=== PATIENT | female | born 1990 | race Caucasian/White ===

== ENCOUNTER 2017-08-27 17:18 | Emergency (ER) | payer OTHER, MEDICAID ==
[~2017-08-27] VITALS: Ht 162.6 cm; Wt 49.9 kg
[~2017-08-27 17:18] MED LIST: ABILIFY 2 MG2 MG; ACCUNEB SO1.25 MG/1; ACETAMINOPHEN-1 EAC1; ACETAMINOPHEN-1 EAC1 PO; AFRIN MENTHOL S15 ML NS; AMOXICILLIN 50500 M1 PO; AMOXICILLIN 50500 MG PO; AMOXICILLIN500 M1 PO; AMOXIL 875 MG875 M1 PO; APAP500 PO; AZITHROMYCIN 2250 MG PO; AZITHROMYCIN PO; BACTRIM DS TAB1 EACH PO; CENTRUM SILVER1 EAC4 PO; CEPHALEXIN 500500 M3 PO; CIPROFLOXACIN500 M3 OR; FERROUS SULFAT325 M1; HYDROCODONE-APA1 TA1 PO; IBUPROFEN 800800 M1; IBUPROFEN 800800 M1 PO; IRON; KEFLEX500 MG PO; LIDOCAINE VISC100 M1 SWISH&SPIT; LOESTRIN 24 FE1 EACH; MACROBID 100 M100 M1 PO; NAPROSYN500 MG PO; NOHOMEMEDICATIONS; NORCO 5-325 TA1 EACH PO; ONDANSETRON HCL4 M2 PO; PENICILLIN V P500 MG PO; PHENERGAN 25 MG25 MG PO; PREDNISONE 10 M10 MG PO; PREDNISONE 20 M20 M1 PO; PRENATAL; PROMETHAZINE-D120 ML PO; PROZAC40 MG; REMERON 30 MG T30 MG; ROBITUSSIN-COU237 ML PO; TERAZOL 320 GM VG; TESSALON PERLE100 MG PO; TOPAMAX 25 MG T25 M1; TRAMADOL 50 MG50 MG PO; TRINATE TABLET1 TAB PO; ULTRAM 50MG TAB50 MG PO; UNICOMPLEX M TA1 TA1; VENTOLIN HFA 1818 GM INH; VITAMIN B-625 MG; ZOFRAN 4 MG ORAL4 M1 DIS; ZOFRAN4 MG; ZOFRAN4 MG PO; ZOLOFT25 MG; ZPAK PO; [UNRECOGNIZED DRUG - OTHER]
[2017-08-27 17:30] VITALS: BP 95/54
[2017-08-27 18:21] LABS: INFLUENZA A ANTIGEN None Detected (None Detect); INFLUENZA B ANTIGEN None Detected (None Detect)
[2017-08-27] MEDS ORDERED: AMOXICILLIN 50500 MG PO (18:26)
== END 2017-08-27 18:54 | disposition home or self-care (01) ==
LOC: M.ERS 17:18
PROVIDERS: Nurse Practitioner Family
DX: J02.0 Streptococcal pharyngitis (principal); F32.9 Major depressive disorder, single episode, unspecified

== ENCOUNTER 2017-11-20 09:49 | Emergency (ER) | payer OTHER, MEDICAID ==
[~2017-11-20] VITALS: Ht 162.6 cm; Wt 49.9 kg
[2017-11-20] MEDS ORDERED: KEFLEX500 M1 PO (10:21)
[2017-11-20] MEDS ORDERED: BACTROBAN NASAL1 GM NASAL (10:21)
[2017-11-20] MEDS ORDERED: PROMETHAZINE V473 ML PO (10:22)
[2017-11-20] MEDS ORDERED: TESSALON PERLE100 MG PO (10:22)
[2017-11-20 10:34] VITALS: BP 105/57
== END 2017-11-20 10:35 | disposition home or self-care (01) ==
LOC: M.ERS 09:49
DX: J20.9 Acute bronchitis, unspecified (principal); L01.00 Impetigo, unspecified; Z88.5 Allergy status to narcotic agent

== ENCOUNTER 2018-07-14 14:40 | Emergency (ER) | payer OTHER, MEDICAID ==
[~2018-07-14] VITALS: Ht 162.6 cm; Wt 49.9 kg
[~2018-07-14 14:40] MED LIST changes: +BACTROBAN NASAL1 GM NASAL; +KEFLEX500 M1 PO; +PROMETHAZINE V473 ML PO
[2018-07-14] MEDS ORDERED: TESSALON PERLE100 MG PO (16:08)
[2018-07-14] MEDS ORDERED: PROAIR HFA8.5 GM INH (16:08)
[2018-07-14 16:22] VITALS: BP 115/64
== END 2018-07-14 16:22 | disposition home or self-care (01) ==
LOC: M.ERS 14:40
DX: J06.9 Acute upper respiratory infection, unspecified (principal); Z88.6 Allergy status to analgesic agent; Z98.890 Other specified postprocedural states

== ENCOUNTER 2020-01-13 11:17 | Emergency (ER) | payer OTHER ==
[~2020-01-13] VITALS: Ht 162.6 cm; Wt 54.4 kg
[~2020-01-13 11:17] MED LIST changes: +PROAIR HFA8.5 GM INH
[2020-01-13] MEDS ORDERED: LEVO-T25 MCG PO (11:28)
[2020-01-13] MEDS ORDERED: LEXAPRO20 MG PO (11:28)
[2020-01-13] MEDS ORDERED: KEFLEX500 M1 PO (12:14)
[2020-01-13 12:39] VITALS: BP 112/70
== END 2020-01-13 12:39 | disposition home or self-care (01) ==
LOC: M.ERS 11:17
DX: H00.015 Hordeolum externum left lower eyelid (principal); Z98.890 Other specified postprocedural states; Z88.6 Allergy status to analgesic agent

== ENCOUNTER 2021-07-12 15:57 | Emergency (ER) | payer OTHER ==
[~2021-07-12] VITALS: Ht 162.6 cm; Wt 52.2 kg
[~2021-07-12 15:57] MED LIST changes: +LEVO-T25 MCG PO; +LEXAPRO20 MG PO
[2021-07-12] MEDS ORDERED: LAMICTAL ODT50 MG PO (16:10)
[2021-07-12 17:28] LABS: MPV 6.9 fl. (7.2-11.1)
[2021-07-12 17:31] LABS: ABSOLUTE BASOPHILS 0.1 thou/uL (0.0-0.2); ABSOLUTE EOSINOPHILS 0.1 thou/uL (0.0-0.7); ABSOLUTE LYMPHOCYTES 2.3 thou/uL (0.8-5.3); ABSOLUTE MONOCYTES 0.7 thou/uL (0.0-1.2); ABSOLUTE NEUTROPHILS 3.8 thou/uL (1.6-8.1); EOSINOPHILS 0.9 %; HEMATOCRIT 35.3 % (37.0-47.0); HEMOGLOBIN 11.7 gm/dL (12.0-15.0); LYMPHOCYTES 33.5 %; MCH 29.4 pg (26.0-34.0); MCHC 33.2 g/dL (28.0-37.0); MCV 88.6 fL (80.0-100.0); MONOCYTES 10.6 %; NUCLEATED RBCS 0 /100WBC; PLATELET COUNT* 374 thou/uL (150-400); RBC 3.98 mil/uL (4.20-5.00); RDW-CV 13.7 % (10.5-14.5)
[2021-07-12 17:36] LABS: CREATININE 0.6 mg/dL (0.6-1.3)
[2021-07-12] MEDS ORDERED: IBUPROFEN 800800 M1 PO (18:47)
[2021-07-12 19:06] VITALS: BP 115/67
== END 2021-07-12 19:07 | disposition home or self-care (01) ==
LOC: M.ERS 15:57
PROVIDERS: Emergency Medicine
DX: S76.912A Strain of unspecified muscles, fascia and tendons at thigh level, left thigh, initial encounter (principal); S76.911A Strain of unspecified muscles, fascia and tendons at thigh level, right thigh, initial encounter; Z79.899 Other long term (current) drug therapy; Z88.5 Allergy status to narcotic agent; X58.XXXA Exposure to other specified factors, initial encounter; Y93.89 Activity, other specified; Y92.89 Other specified places as the place of occurrence of the external cause; Y99.8 Other external cause status